=== PATIENT | female | born 1990 | race Hispanic/Latino ===

== ENCOUNTER 2020-02-25 22:03 | Emergency (ER) | payer SELFPAY ==
[2020-02-25 23:22] LABS: Bacteria,Urine 1+ /HPF (Negative); Bilirubin,Urine NEG (Negative); Blood,Urine NEG (Negative); Color,Urine Yellow (Yellow); Mucus,Urine FEW /HPF; Protein,Urine <15 mg/dL mg/dL (Negative); Urobilinogen,Urine < 2.0 mg/dL (<2.0)
[2020-02-25 23:28] LABS: Hematocrit 38.3 % (30.3-42.9); Hemoglobin 12.8 gm/dl (10.1-14.3)
--- NOTE | 2020-02-25 23:41 | Emergency Department Report ---
ED Medical Clearance HPI - General Chief complaint: Medical Clearance Stated complaint: METH RELAPSE, HEART RACING Time Seen by Provider: 02/25/20 23:10 Source: patient, RN notes reviewed, old records reviewed Mode of arrival: Ambulatory Limitations: No Limitations - History of Present Illness Initial comments: Patient is a 29-year-old female. The patient is not known to myself previously. She denies fever, cough, coronavirus exposure. She has a history of methamphetamine use and obesity. She presents to the ER with a request for medical clearance for detox after methamphetamine relapse. She is currently living in an editorial assistant[facility] house for detox. She denies physical pain at this time. She denies headache, neck pain, chest pain, abdominal pain, shortness of breath, dysuria, hematuria, focal extremity weakness and or numbness. She is not homicidal or suicidal. She has a chronic "smoker's cough." This is not new, worsened or different. She declines medication for anxiety at this time. She makes no complaint of heart racing or palpitations to myself. Complaint: medical clearance request, other -: days(s) Reason for Medical Clearance: other Traumatic Symptoms: denies traumatic injury Allergies/Adverse reactions: Allergies Allergy/AdvReac Type Severity Reaction Status Date / Time doxycycline Allergy Vomiting Verified 02/25/20 22:21 sulfamethoxazole Allergy Swelling Verified 02/25/20 22:21 [From Bactrim] trimethoprim [From Bactrim] Allergy Swelling Verified 02/25/20 22:21 ED Review of Systems ROS: Stated complaint: METH RELAPSE, HEART RACING Other details as noted in HPI Constitutional: denies: fever Eyes: denies: eye discharge ENT: denies: other Respiratory: cough (Chronic cough). denies: wheezing Cardiovascular: denies: chest pain Gastrointestinal: denies: abdominal pain, nausea, vomiting Genitourinary: denies: dysuria Musculoskeletal: denies: myalgia Neurological: denies: weakness Psychiatric: anxiety. denies: auditory hallucinations, visual hallucinations, homicidal thoughts, suicidal thoughts ED Past Medical Hx - Past Medical History Previous Medical History?: No - Surgical History Past Surgical History?: Yes Additional Surgical History: essure - Social History Smoking Status: Current Every Day Smoker Substance Use Type: Methamphetamines ED Physical Exam - General Limitations: No Limitations General appearance: alert, anxious, obese - Head Head exam: Present: atraumatic, normocephalic - Eye Eye exam: Present: normal appearance, EOMI. Absent: nystagmus - ENT ENT exam: Present: normal exam, normal orophraynx, mucous membranes moist, normal external ear exam - Neck Neck exam: Present: normal inspection, full ROM. Absent: tenderness, meningismus - Respiratory Respiratory exam: Present: normal lung sounds bilaterally. Absent: respiratory distress - Cardiovascular Cardiovascular Exam: Present: normal rhythm, tachycardia, normal heart sounds. Absent: systolic murmur, diastolic murmur, rubs, gallop - GI/Abdominal GI/Abdominal exam: Present: soft. Absent: distended, tenderness, guarding, rebound, rigid, pulsatile mass - Extremities Exam Extremities exam: Present: normal inspection, full ROM, other (2+ pulses noted in the bilateral upper and lower extremities. There is no palpable cord. negative Homans sign. Muscular compartments are soft. The pelvis is stable.). Absent: pedal edema, calf tenderness - Back Exam Back exam: Present: normal inspection, full ROM. Absent: tenderness, CVA tenderness (R), CVA tenderness (L), paraspinal tenderness, vertebral tenderness - Neurological Exam Neurological exam: Present: alert, oriented X3, normal gait, other (No facial dr oop. Tongue midline. Extraocular movements intact bilaterally. Facial sensation intact to light touch in V1, V2, V3 distribution bilaterally. 5 and a 5 strength in 4 extremities. Sensation intact to light touch in 4 extremities.). Absent: motor sensory deficit - Psychiatric Psychiatric exam: Present: anxious. Absent: homicidal ideation, suicidal ideati on - Skin Skin exam: Present: warm, dry, intact, normal color. Absent: rash ED Course Vital Signs 02/25/20 22:23 Temperature 98.5 F Pulse Rate 107 H Respiratory 16 Rate Blood Pressure 146/93 O2 Sat by Pulse 92 Oximetry - Reevaluation(s) Reevaluation #1: 02/25/20 23:39 Differential diagnosis, including but not limited to: Medical clearance, methamphetamine dependence Assessment and plan: 29-year-old female who is clinically sober at this time, GCS of 15, walking with a steady gait, coming off of a methamphetamine binge, here for medical clearance for detox placement. Her physical examination is unremarkable with the exception of minimal tachycardia, likely secondary to methamphetamine use, as well as possible anxiety. She is not homicidal or suicidal, she presents as cooperative, and pleasant, Annabelle little bit anxious, and does not meet criteria for 1013 hold or involuntary placement. She declines medications at this time. Screening laboratory studies sent to exclude emergent toxicologic ingestion. Do not anticipate that patient will have an emergent medical condition that would require hospitalization. Patient counseled that she could follow-up with outpatient detox at [facility], or the detox facility of her choice. Reevaluation #2: 02/25/20 23:44 Urinalysis is reviewed and appreciated. The patient does not endorse irritative or obstructive urinary symptoms. Elevated CK reviewed and appreciated. Muscular compartments soft. Patient can drink liquids, and have this rechecked. Reevaluation #3: 02/26/20 00:01 Nursing team has indeed confirmed that local outpatient psychiatric facilities are open 24 hours. Patient can follow-up with an outpatient primary care doctor for elevated CK, drink plenty of fluids, and her asymptomatic bacteriuria. ED Medical Decision Making - Lab Data Result diagrams: 02/25/20 23:01 02/25/20 23:01 Vital Signs 02/25/20 22:23 Temperature 98.5 F Pulse Rate 107 H Respiratory 16 Rate Blood Pressure 146/93 O2 Sat by Pulse 92 Oximetry Lab Results 02/25/20 02/25/20 Range/Units 23:01 Unknown Hgb 12.8 (10.1-14.3) gm/dl Hct 38.3 (30.3-42.9) % Plt Count 185 (140-440) K/mm3 Urine Color Yellow (Yellow) Urine Turbidity Slightly-cloudy (Clear) Urine pH 6.0 (5.0-7.0) Ur Specific [place] 1.004 (1.003-1.030) Urine Protein <15 mg/dl (Negative) mg/dL Urine Glucose (UA) Neg (Negative) mg/dL Urine Ketones Neg (Negative) mg/dL Urine Blood Neg (Negative) Urine Nitrite Neg (Negative) Urine Bilirubin Neg (Negative) Urine Urobilinogen < 2.0 (<2.0) mg/dL Ur Leukocyte Esterase Mod (Negative) Urine WBC (Auto) 8.0 H (0.0-6.0) /HPF Urine RBC (Auto) 2.0 (0.0-6.0) /HPF U Epithel Cells (Auto) 5.0 (0-13.0) /HPF Urine Bacteria (Auto) 1+ (Negative) /HPF Urine Mucus Few /HPF ED Disposition Clinical Impression: General medical exam, Methamphetamine use Disposition: DC-01 TO HOME OR SELFCARE Is pt being admited?: No Does the pt Need Aspirin: No Condition: Stable Additional Instructions: Please drink at least 6 cups of water per day indefinitely. Avoid consumption of methamphetamine and recreational drugs. Consumption of the aforementioned may cause addiction, disability, , paralysis, loss of quality of life. Follow-up with an outpatient primary care doctor within the next month. Patient may follow-up with an outpatient detox center at her convenience. At the moment, the patient does not appear to have an immediate medical contraindication to outpatient detox therapy. Please return to the emergency room right away with projectile vomiting, change in mental status, confusion, inability to tolerate liquid feeds, confusion, worsening symptoms, or new, worsened or different symptoms not present on the initial emergency room evaluation. Laboratory studies show mildly elevated creatinine kinase level, this is typically associated with methamphetamine use. Drinking plenty of water will help make this go down, and avoidance of heavy lifting, and methamphetamines wi ll also assist with decreasing this level. Complications of persistently elevated creatinine kinase level include worsening kidney function, or possible kidney failure. Therefore, please do not consume methamphetamines. Please drink 6 cups of water per day. Follow-up with your primary care doctor within the next 7 days to have this rechecked. Laboratory studies also showed bacteria in the urine that does not appear to correlate with symptoms. please follow-up with a primary care doctor for this. [facility] in [place], [place] Address: [address], [place] [address] Hours: Open 24 hours [facility] in the [place], [place] Address: [address] [place] [address] , [place] [address] Open 24 hours Referrals: [facility] [Provider Group] - 3-5 Days SUZY RASMUSSEN MD [Staff Physician] - 3-5 Days [facility] [Outside] - 3-5 Days
[2020-02-25 23:42] LABS: Benzodiazepines Screen,Urine PRESUMPTIVE NEGATIVE; Cannabinoid Screen,Urine PRESUMPTIVE NEGATIVE; Cocaine Screen,Urine PRESUMPTIVE NEGATIVE; Methadone Screen,Urine PRESUMPTIVE NEGATIVE; Opiate Screen,Urine PRESUMPTIVE NEGATIVE
[2020-02-25 23:45] LABS: BUN/Creatinine Ratio 13; Blood Urea Nitrogen 10 mg/dL (7-17); Calcium 9.9 mg/dL (8.4-10.2); Hemolysis Index 5
[2020-02-25 23:57] LABS: Amphetamine Screen,Urine PRESUMPTIVE POSITIVE
== END 2020-02-26 00:23 | disposition home or self-care (01) ==
LOC: ED 22:03
DX: F15.10 Other stimulant abuse, uncomplicated (principal); F17.200 Nicotine dependence, unspecified, uncomplicated; Z88.1 Allergy status to other antibiotic agents; Z88.2 Allergy status to sulfonamides; Z79.899 Other long term (current) drug therapy
CPT/HCPCS: 36415; 80048; 80307; 80320; 81001; 82550; 83735; 84702; 85014; 85018; 85049; G0480

== ENCOUNTER 2020-02-28 15:32 | Emergency (ER) | payer SELFPAY ==
[2020-02-29 13:30] VITALS: BP 148/89
== END 2020-02-28 18:00 | disposition left against medical advice (07) ==
LOC: ED 15:32
DX: R45.851 Suicidal ideations (principal); Z53.21 Procedure and treatment not carried out due to patient leaving prior to being seen by health care provider